=== PATIENT | female | born 2000 | race Two or more races ===

== ENCOUNTER 2024-03-01 14:04 | Emergency (ER) | payer BC, OTHER ==
[~2024-03-01] VITALS: Ht 165.1 cm; Wt 155.0 kg
[2024-03-01 14:25] VITALS: BP 130/81; PULSE 75; RESP 16; TEMP 97.5; O2SAT 96
[2024-03-01] MEDS: TETRACAINE HCL 0.5% OPTH(EYE) SOLN 4ML RIGHTEYE ONE (14:27)
[2024-03-01] MEDS ORDERED: CIPR0.3O OP (15:05)
== END 2024-03-01 15:04 | disposition home or self-care (01) ==
LOC: ER 14:04
DX: H10.31 Unspecified acute conjunctivitis, right eye (principal)